=== PATIENT | male | born 1995 | race Caucasian/White ===

== ENCOUNTER 2016-06-22 16:47 | Emergency (ER) | payer SELFPAY ==
[2016-06-22] MEDS ORDERED: ALBUTEROL SULFATE 2.5 MG/3 ML AMPUL.NEB NEB ONE (16:50)
--- NOTE | 2016-06-22 17:01 | ED Physician Documentation ---
Asthma - HISTORIAN Historian: patient - HPI Chief Complaint: Asthma Onset: other (asthma for years) Duration: continues in ED, better Associated Symptoms:: trouble breathing, shortness of breath. denies: fever Current Asthma Therapy: other (proventel inhaler) - ROS CONST: no problems - PAST HX Asthma: frequent attacks (uses inhaler 2-3 a day) Lung Disease: asthma DVT/PE Risk Factors: none Surgeries/Procedures: none Allergies/Adverse Reactions: Allergies Allergy/AdvReac Type Severity Reaction Status Date / Time No Known Allergies Allergy Verified 06/22/16 17:09 Home Medications: Ambulatory Orders Medication Instructions Recorded Albuterol Sulfate [ProAir 1 puff INH Q6H PRN #1 inhaler 03/10/16 [facility]] - SOCIAL HX Smoking History: quit less than 1 year (quit two months ago) Alcohol Use: none Drug Use: none - FAMILY HX Family History: asthma - VITAL SIGNS Vital Signs: Vital Signs Temp Pulse Resp BP Pulse Ox 163/74 03/10/16 11:12 - REVIEWED ASSESSMENTS Nursing Assessment Reviewed: Yes Vitals Reviewed: Yes Progress - Progress Progress: 1704 Feels much better post albuterol treatment, still having some wheezing. 1743 Patient is stil having some mild wheezing, moving air much better. Asthma Physical Exam - EXAM General Appearance: alert, mild distress EENT: eye inspection normal, ENT inspection normal Neck: nml inspection Respiratory: speaks full sentences, respiratory distress (mild), wheezes, rhonchi (course bilat) CVS: reg rate & rhythm, heart sounds normal, equal pulses, no murmur, no gallop Abdomen: non-tender, no organomegaly, nml bowel sounds, no distention Skin: color nml, no rash Extremities: non-tender Neuro/Psych: oriented x3, mood/affect nml Discharge Clincal Impression: Exacerbation of asthma Referrals: Primary Doctor,No [Primary Care Provider] - 2 Days Additional Instructions: It is important for you to get better control of your asthma. You will need to be on long acting albuterol and chronic steroid inhaler until asthma is better. Take samples of Breo one inhalation once a day, rinse your mouth out post use. Consider seeing your primary care provider to get more definitive treatment for your asthma. Home Medications: Ambulatory Orders Albuterol Sulfate [ProAir RespiClick] 1 puff INH Q6H PRN #1 inhaler 03/10/16 Condition: Stable Disposition: 01 HOME, SELF-CARE Decision to Admit: NO Date of Decison to Admit: 06/22/16 Decision Time: 17:48
[2016-06-22] MEDS ORDERED: IPRATROPIUM/ALBUTEROL SULFATE 3 ML AMPUL.NEB NEB ONE (17:09)
[2016-06-22] MEDS ORDERED: methylPREDNISolone ACETATE 80 MG/ML VIAL IM ONE (17:41)
[2016-06-22] MEDS ORDERED: DEXAMETHASONE SOD PHOS 4 MG/ML VIAL IM ONE (17:41)
[2016-06-22 18:20] VITALS: BP 117/54
== END 2016-06-22 18:03 | disposition home or self-care (01) ==
LOC: ED 16:47
DX: J45.909 Unspecified asthma, uncomplicated (principal); Z87.891 Personal history of nicotine dependence
CPT/HCPCS: 99283

== ENCOUNTER 2019-04-30 19:46 | Emergency (ER) | payer SELFPAY ==
--- NOTE | 2019-04-30 19:48 | ED Physician Documentation ---
General Adult - HISTORIAN Historian: patient - HPI Stated Complaint: migraine Chief Complaint: Headache Onset: hours (5) Timing: still present Severity: moderate Further Comments: yes (He states he gets migraines and ususally OTC meds help with this and this time he feels no better. States pain is 8/10. He denies any recent illness or injury . Mild nausea no vomiting. No fever) - ROS CONST: no problems EYES/ENT: denies: problems with vision, nasal drainage CVS/RESP: none GI/: nausea NEURO/PSYCH: headache - PAST HX Past History: other (migraines ) Immunizations: UTD Allergies/Adverse Reactions: Allergies Allergy/AdvReac Type Severity Reaction Status Date / Time No Known Drug Allergies Allergy Verified 04/30/19 21:43 Home Medications: Ambulatory Orders Medication Instructions Recorded Aspirin/Acetaminophen/Caffeine 500 mg PO 04/30/19 [Excedrin Migraine Caplet] - SOCIAL HX Smoking History: cigarettes Alcohol Use: none Drug Use: none - FAMILY HX Family History: No - VITAL SIGNS Vital Signs: Vital Signs Temp Pulse Resp BP Pulse Ox 117/54 06/22/16 18:03 - REVIEWED ASSESSMENTS Nursing Assessment Reviewed: Yes Vitals Reviewed: Yes Progress - Progress Progress: 2103: migraine is "some better" he is resting quietly - will continue to observe DG 2143: states his pain is the same DG 2220: resting quietly states pain is improved DG General Adult Physical Exam - PHYSICAL EXAM GENERAL APPEARANCE: no distress EENT: eye inspection normal, pharynx normal, no signs of dehydration, ISABEL NECK: normal inspection RESPIRATORY: no resp distress, chest non-tender, breath sounds normal CVS: reg rate & rhythm, heart sounds normal ABDOMEN: soft, normal bowel sounds, no distension BACK: normal inspection, no CVA tenderness SKIN: warm/dry, normal color EXTREMITIES: non-tender, normal range of motion, no evidence of injury, no edema NEURO: oriented X3 Discharge Clincal Impression: Migraine Qualifiers: Migraine type: unspecified Status migrainosus presence: without status migrainosus Intractability: not intractable Qualified Code(s): G43.909 - Migraine, unspecified, not intractable, without status migrainosus Referrals: Primary Doctor,No [Primary Care Provider] - 2 Days Comments: 1. Tramadol 50 mg take 1 by mouth every 8 hours as needed for pain 2. OTC meds as directed as needed for pain - do not mix with tramadol 3. Follow up with PCP for preventative migraine meds 4. Increase fluids 5. Return to ER for any increased concerns Condition: Stable Disposition: 01 HOME, SELF-CARE Decision to Admit: NO Date of Decison to Admit: 04/30/19 Decision Time: 22:30
[2019-04-30] MEDS ORDERED: 0.9 % SODIUM CHLORIDE 1,000 ML IV ONE (20:06)
[2019-04-30] MEDS ORDERED: ONDANSETRON HCL/PF 4 MG/ 2ML VIAL IVP ONE (20:06)
[2019-04-30] MEDS ORDERED: diphenhydrAMINE HCL 50 MG/ML VIAL IVP ONE (20:08)
[2019-04-30] MEDS ORDERED: KETOROLAC TROMETHAMINE 30 MG/1ML VIAL IV ONE (20:08)
[2019-04-30] MEDS ORDERED: methylPREDNISolone SOD SUCC 125 MG/2 ML VIAL IVP ONE (20:08)
[2019-04-30] MEDS ORDERED: fentaNYL CITRATE/PF 100 MCG/2 ML INJ. IVP ONE (21:41)
[2019-04-30 23:00] VITALS: BP 123/67
== END 2019-04-30 22:25 | disposition home or self-care (01) ==
LOC: ED 19:46
DX: G43.909 Migraine, unspecified, not intractable, without status migrainosus (principal)
CPT/HCPCS: J1200; J1885; J2405; J2930; J3010; J7030; S1016